=== PATIENT | male | born 1955 | race Caucasian/White ===

== ENCOUNTER 2023-02-10 06:19 | Day surgery (SDC) | payer MEDICARE, SELFPAY ==
[2023-02-10] VITALS (7 sets, daily range): BP systolic 76–160; BP diastolic 56–76; PULSE 71–94; RESP 16; TEMP 36.3–36.6; O2SAT 93–96; BMI 32.1
[2023-02-10] MEDS: Lactated Ringers 1,000 ML 15 ML IV (06:51)
--- NOTE | 2023-02-10 07:00 | HP.PCM_ITS ---
History and Physical Date of Admission: 02/10/23 Visit Reasons:?SCOPE Chief Complaint: scope Mail Rider Required: No Is patient in pain?: No Allergies No Known Allergies Allergy (Unverified 01/15/23 08:19) Medications amlodipine 5 mg tablet 5 mg PO DAILY 01/15/23 [History Confirmed 01/15/23] celecoxib 200 mg capsule 200 mg PO DAILY 01/15/23 [History Confirmed 01/15/23] hydrochlorothiazide 12.5 mg tablet 12.5 mg PO DAILY 01/15/23 [History Confirmed 01/15/23] losartan 100 mg tablet 100 mg PO DAILY 01/15/23 [History Confirmed 01/15/23] metoprolol succinate 100 mg tablet,extended release 24 hr 100 mg PO DAILY 01/15/23 [History Confirmed 01/15/23] omeprazole 20 mg capsule,delayed release 20 mg PO DAILY 01/15/23 [History Confirmed 01/15/23] simvastatin 80 mg tablet 80 mg PO DAILY 01/15/23 [History Confirmed 01/15/23] PFSH Medical History?(Updated 01/15/23 @ 08:[address] Julian Medina MD) Diverticulitis GERD (gastroesophageal reflux disease) High cholesterol HTN (hypertension) Surgical History?(Updated 01/15/23 @ 08:17 by Tyra Mercado) H/O elbow surgery History of ankle surgery S/P carpal tunnel release S/P hip replacement S/P wrist surgery Social History?(Updated 01/15/23 @ 08:18 by Tyra Mercado) Smoking Status:? Never smoker alcohol intake:? current HPI HPI HPI: 67-year-old gentleman who presents to consider colonoscopy.? We have information October 03, [address] abdomen and pelvis that was performed at [facility].? The liver was unremarkable.? Gallbladder normal.? Peripelvic cysts noted of the kidneys.? 3.5 cm hiatal hernia with a thickened looking stomach.? Possibly artifact of under distention.? Cannot exclude gastritis.? A few jejunal diverticulum.? Multiple sigmoid diverticula.? Mild mid sigmoid thickening apparently due to under distention but cannot exclude muscular atrophy.? Normal appendix.? Moderate calcification of the abdominal aorta.? Evidence of right hip arthroplasty. His complaint at that time was a 2-month history of a low abdominal ache after eating with aching most of the day.? No history of prior colonoscopy.? Patient's was here with his couple weeks ago.? He states that when the left lower quadrant pain started he was placed on some antibiotics per primary care but that really did not improve things and then antibiotics were changed and he thinks he got better but he still not completely resolved with intermittent tenderness left lower quadrant.? No fever or chills or sweats or nausea or vomiting or bright red blood per rectum or melena.? He has no family history of colon polyps or colon cancer.? He has never had a colonoscopy.? Sometimes he has had some constipation alternating with diarrhea.? The pain is worse when he overeats.? The pain is worse even after a regular meal. Additionally he makes comment that he has had heartburn symptoms for probably 20 years and has been on a proton pump inhibitor that entire time.? The PPI works efficiently however he will have recurrent reflux symptoms upon cessation..? He has never had an upper endoscopy ROS General General: No weight change, appetite, fatigue, colon cancer, breast cancer or weakness HEENT HEENT: No difficulty swallowing, eye injury, eye surgery, swollen glands or hoarseness Endo Endocrine: No thyroid disease, diabetes mellitus, thyroid cancer, Hair loss, heat intolerance or cold intolerance Skin Skin: No rash or changing moles Breast Breast: No left breast lump, right breast lump, nipple discharge, breast pain, abnormal mammogram, abnormal US or breast enlargement Musc Musculoskeletal: Yes back problems and arthritis; No rheumatoid arthritis, gout or joint pain Cardio Cardiovascular: Yes high blood pressure; No murmur, pacemaker, heart disease, atrial fibrillation, heart attack, heart stent, palpitations, shortness of breat with exertion or chest pain Psych Psychiatric: No depression, anxiety or hearing voices Resp Respiratory: No shortness of breath, No sleep apnea, No cough, No COPD, No asthma, No emphysema and No wheezing Gastro Gastrointestinal: Yes abdominal pain, No nausea or vomiting, No diarrhea, No constipation, No blood in stool, No acid reflux, No hemorrhoids, No ulcers, No gallbladder problem and No black,tarry stools Jayson Hematologic: No blood thinners, No blood disorders, No bleeding, No anemia and No blood clots Neuro Neurologic: No system reviewed and no additional complaints, except as documented, No as per HPI, No abnormal gait, No abnormal hearing, No abnormal movements, No abnormal speech, No behavioral changes, No burning sensations, No confusion, No convulsions, No disequilibrium, No dizziness, No localized weakness, No frequent falls, No headache(s), No lack of coordination, No loss of vision, No memory loss, No numbness, No other visual disturbances, No radicular pain, No restless legs, No sensory deficit, No syncope, No tingling, No tremor(s), No weakness and No other Exam Const General: cooperative, healthy appearing and comfortable [facility] Head: normal to inspection Eyes General: appearance normal, both eyes and all related structures Neck Neck: normal visual inspection Chest Chest palpation & inspection: normal inspection of the chest Resp Effort & Inspection: normal respiratory effort Auscultation: clear to auscultation bilaterally Cardio Rate: regular rate Rhythm: regular rhythm GI Palpation: soft and no hepatosplenomegaly Auscultation: normal bowel sounds Skin General: no rashes or lesions noted Neuro General: patient alert, patient awake and patient oriented x3 Extrem General: no calf tenderness Psych Appearance: grossly normal Assessment and Plan Assessment and Plan (1) GERD (gastroesophageal reflux disease): ?Status:?Acute (2) Abdominal pain: ?Status:?Acute ?Plan: 67-year-old gentleman.? He has had a chronic long-term history of heartburn reflux symptoms and has been on proton pump inhibitor for multiple years.? He has never had a esophagogastroduodenoscopy.? CT imaging demonstrated a small hiatal hernia as well as thickening of the gastric wall.? I recommended the patient esophagogastroduodenoscopy with possible biopsy or polypectomy is indicated. The patient presents with ongoing issues with left lower quadrant abdominal pain.? Although improved it is not completely resolved.? He notes some intermittent change in bowel habits as well with some constipation and diar lovely.? CT imaging suggested some thickening of the sigmoid wall.? He has never had a colonoscopy.? I propose for him a colonoscopy with possible biopsy or polypectomy is indicated with very careful inspection of the sigmoid area. He has had an opportunity to ask and have questions answered.? He requests a prep utilizing pills which we will accommodate.? I very much appreciate the kind opportunity of assisting with the surgical care. Copy: Dr. Onur Medina M.D., F.A.C.S. I have examined the patient and the H&P has been reviewed. There are no clinical changes since date of exam. Julian Medina M.D., F.A.C.S. Assessment & Plan Assessment/Plan (1) Abdominal pain: (2) GERD (gastroesophageal reflux disease):
--- NOTE | 2023-02-10 07:30 | COLBX_PTH ---
PATIENT: JADA SURESH Jr. LOC: EN U#:[id number] AGE/SX: 67/M ROOM: RE02/10/[address]: Dr. Julian Medina MD : 1955 BED: DIS: 02/10/2023 SPEC #: [id number] RECD: 02/10/23 11:30 STATUS: BLAKE HILLMAN #: [id number] PARDEEP: 02/10/23 07:[address]: Julian Medina DEPT: SURGICAL PATHOLOGY RECD BY: Huey Knowles Tissues: A - COLON BIOPSY B - COLON BIOPSY C - Esophagus, NOS Procedures: Special Stain Group II Surgery Specimen Level IV Alcian Blue/PAS (control) HEADER OPERATION: Colonoscopy, EGD with biopsies ([facility] [place]) PRE-OP DIAGNOSIS: GERD, abdominal pain TISSUE SUBMITTED: A ? Antrum for H. pylori and path, B ? Greater curvature polyp biopsy, C ? Distal esophagus biopsy MICROSCOPIC DIAGNOSIS A. Antrum, biopsy: Mild gastritis. See microscopic description and comment. B. Greater curvature polyp, biopsy: Fundic gland polyp. C. Distal esophagus, biopsy: Fragments of gastroesophageal mucosa with rare cells with intestinal metaplasia (goblet cell metaplasia). Mild chronic inflammation. Negative for dysplasia. See comment. SJ:rg 02/11/2023 COMMENT A. The results of immunohistochemistry for Helicobacter pylori will be reported separately ([id number]). C. Alcian blue/PAS stain with matched control is used in the evaluation of the specimen. The specimen predominantly consists of squamous mucosa. MICROSCOPIC DESCRIPTION Slides are reviewed. A. The specimen shows fragments of gastric mucosa with chronic inflammatory cell infiltrates in the lamina propria consisting of lymphocytes and plasma cells, consistent with mild chronic gastritis. GROSS DESCRIPTION A - Received in fixative is one container labeled with the patient's name and designated gastric antrum. The specimen consists of one irregular fragment of light cancino soft tissue that measures 0.3 x 0.3 x 0.1 cm. The specimen is totally submitted in one cassette. B - Received in fixative is one container labeled with the patient's name and designated greater curvature polyp. The specimen consists of one irregular fragment of light cancino soft tissue that measures 0.7 x 0.3 x 0.1 cm. The specimen is totally submitted in one cassette. C - Received in fixative is one container labeled with the patient's name and designated distal esophagus. The specimen consists of two irregular fragments of light cancino soft tissue that in aggregate measure 0.7 x 0.5 x 0.1 cm. The specimen is totally submitted in one cassette. / AM:shakila 02/10/2023 TC:3 CPT: 02407 x3, 73904
--- NOTE | 2023-02-10 07:30 | IMM_PTH ---
PATIENT: JADA SURESH Jr. LOC: JUANA U#:[id number] AGE/SX: 67/M ROOM: RE02/10/[address]: Dr. Julian Medina MD : 1955 BED: DIS: 02/10/2023 SPEC #: [id number] RECD: 02/10/23 12:50 STATUS: BLAKE KADY #: [id number] PARDEEP: 02/10/23 07:[address]: Julian Medina DEPT: IMMUNOHISTOCHEMISTRY RECD BY: Apryl Urban Tissues: A - Stomach, NOS Procedures: H Pylori (initial) PHYSICIAN & INSTITUTION [place] [id number] SPECIMEN INFORMATION: Tissue Source: A - Antrum Clinical Info: GERD, abdominal pain Specimen Number: [id number] CPT code: 61061 METHODOLOGY: Deparaffinized sections of prefer/formalin-fixed tissue or PAP/DQ stained slides are incubated with monoclonal/polyclonal antibodies/oligonucleotide probes. Localization is made via biotin free immunoperoxidase method. Appropriate controls are performed and reacted as expected. Results on target cell population are indicated in the following table: RESULTS: ANTIBODY / CLONE RESULT Block A H Pylori (polyclonal) negative These tests were developed and their performance characteristics determined by [facility]. They may not have been cleared or approved by the [place]. Food and Drug Administration. The FDA has determined that such clearance or approval is not necessary. The above immunohistochemical/dualISH markers are ordered and reviewed by the Pathologist. INTERPRETATION: A. Antrum, biopsy: Negative for Helicobacter pylori organisms. SJ:shakila 02/11/2023
--- NOTE | 2023-02-10 08:07 | OP.EGD_ITS ---
Patient Name: Ole Mckeon Procedure Date: 02/10/2023 7:35 AM Date of : 1955 Age: 67 Procedure: Upper GI endoscopy Indications: Abdominal pain in the left upper quadrant, Gastro-esophageal reflux disease Providers: Julian Medina MD Referring MD: Julian Medina MD Medicines: See the Anesthesia note for documentation of the administered medications Complications: No immediate complications. Procedure: Pre-Anesthesia Assessment: - Prior to the procedure, a History and Physical was performed, and patient medications and allergies were reviewed. The patient's tolerance of previous anesthesia was also reviewed. The risks and benefits of the procedure and the sedation options and risks were discussed with the patient. All questions were answered, and informed consent was obtained. Prior Anticoagulants: The patient has taken no previous anticoagulant or antiplatelet agents. ASA Grade Assessment: II - A patient with mild systemic disease. After reviewing the risks and benefits, the patient was deemed in satisfactory condition to undergo the procedure. After obtaining informed consent, the endoscope was passed under direct vision. Throughout the procedure, the patient's blood pressure, pulse, and oxygen saturations were monitored continuously. The pediatric colonoscope was introduced through the mouth, and advanced to the second part of duodenum. The upper GI endoscopy was accomplished without difficulty. The patient tolerated the procedure well. Scope In: 7:42:52 AM Scope Out: 7:50:02 AM Total Procedure Duration Time 0 hours 7 minutes 10 seconds Findings: Esophagitis with no bleeding was found 35 cm from the incisors. Biopsies were taken with a cold forceps for histology. A medium-sized hiatal hernia was present. Localized moderate inflammation characterized by linear erosions was found in the gastric antrum. Biopsies were taken with a cold forceps for histology. Multiple pedunculated and sessile polyps with no bleeding and no stigmata of recent bleeding were found on the greater curvature of the stomach. The polyp was removed with a cold biopsy forceps. Resection and retrieval were complete. The examined duodenum was normal. Impression: - Reflux esophagitis. Biopsied. - Medium-sized hiatal hernia. - Acute gastritis. Biopsied. - Multiple gastric polyps. Resected and retrieved. - Normal examined duodenum. Recommendation: - Await pathology results. - Telephone my office for pathology results in 1 week. - Use sucralfate tablets 1 gram PO BID. - Continue present medications. Procedure Code(s): --- Professional --- 67923, Esophagogastroduodenoscopy, flexible, transoral; with biopsy, single or multiple Diagnosis Code(s): --- Professional --- K21.0, Gastro-esophageal reflux disease with esophagitis K44.9, Diaphragmatic hernia without obstruction or gangrene K29.00, Acute gastritis without bleeding K31.7, Polyp of stomach and duodenum R10.12, Left upper quadrant pain CPT copyright 2017 [employer]. All rights reserved. The codes documented in this report are preliminary and upon back maker review may be revised to meet current compliance requirements. Julian Medina MD 02/10/2023 8:06:43 AM This report has been signed electronically. Number of Addenda: 0 Note Initiated On: 02/10/2023 7:35 AM
--- NOTE | 2023-02-10 08:07 | OP.CCLET_ITS ---
02/10/2023 Lady Nieto Re : Upper GI endoscopy procedure for Ole Nieto This procedure was performed on Friday, February 10, 2023. My impressions and recommendations are as follows: Impressions : - Reflux esophagitis. Biopsied. - Medium-sized hiatal hernia. - Acute gastritis. Biopsied. - Multiple gastric polyps. Resected and retrieved. - Normal examined duodenum. Recommendations : - Await pathology results. - Telephone my office for pathology results in 1 week. - Use sucralfate tablets 1 gram PO BID. - Continue present medications. My findings are described in the full procedure note, which is enclosed. If I can be of further assistance, please feel free to contact me at Doctor phone number(s): Work: . Sincerely, Julian Medina MD 02/10/2023 8:06:43 AM This report has been signed electronically.
--- NOTE | 2023-02-10 08:12 | OP.CCLET_ITS ---
02/10/2023 Mandadolores Nieto Re : Colonoscopy procedure for Ole Nieto This procedure was performed on Friday, February 10, 2023. My impressions and recommendations are as follows: Impressions : - Non-thrombosed internal hemorrhoids and internal hemorrhoids that prolapse with straining, but spontaneously regress to the resting position (Grade II) found on digital rectal exam. - Diverticulosis in the sigmoid colon. - The examination was otherwise normal. - No specimens collected. Recommendations : - Discharge patient to home. - Resume previous diet. - Continue present medications. - Repeat colonoscopy in 10 years for screening purposes. My findings are described in the full procedure note, which is enclosed. If I can be of further assistance, please feel free to contact me at Doctor phone number(s): Work: . Sincerely, Julian Medina MD 02/10/2023 8:11:25 AM This report has been signed electronically.
--- NOTE | 2023-02-10 08:12 | OP.COLON_ITS ---
Patient Name: Ole Mckeon Procedure Date: 02/10/2023 7:50 AM Date of : 1955 Age: 67 Procedure: Colonoscopy Indications: Abdominal pain in the left lower quadrant Providers: Julian Medina MD Referring MD: Julian Medina MD Medicines: See the Anesthesia note for documentation of the administered medications Patient Profile: Last Colonoscopy: none. The patient's first colonoscopy is today. Complications: No immediate complications. Procedure: Pre-Anesthesia Assessment: - Prior to the procedure, a History and Physical was performed, and patient medications and allergies were reviewed. The patient's tolerance of previous anesthesia was also reviewed. The risks and benefits of the procedure and the sedation options and risks were discussed with the patient. All questions were answered, and informed consent was obtained. Prior Anticoagulants: The patient has taken no previous anticoagulant or antiplatelet agents. ASA Grade Assessment: II - A patient with mild systemic disease. After reviewing the risks and benefits, the patient was deemed in satisfactory condition to undergo the procedure. After I obtained informed consent, the scope was passed under direct vision. Throughout the procedure, the patient's blood pressure, pulse, and oxygen saturations were monitored continuously. The pediatric colonoscope was introduced through the anus and advanced to the cecum, identified by appendiceal orifice and ileocecal valve. The colonoscopy was performed without difficulty. The patient tolerated the procedure well. The quality of the bowel preparation was good. The ileocecal valve and the appendiceal orifice were photographed. Scope In: 7:51:28 AM Scope Withdrawal Time 0 hours 6 minutes 14 seconds Scope Out: 8:01:05 AM Total Procedure Duration Time 0 hours 9 minutes 37 seconds Findings: The digital rectal exam findings include non-thrombosed internal hemorrhoids and internal hemorrhoids that prolapse with straining, but spontaneously regress to the resting position (Grade II). Pertinent negatives include normal prostate (size, shape, and consistency). Multiple diverticula were found in the sigmoid colon. The exam was otherwise without abnormality. Impression: - Non-thrombosed internal hemorrhoids and internal hemorrhoids that prolapse with straining, but spontaneously regress to the resting position (Grade II) found on digital rectal exam. - Diverticulosis in the sigmoid colon. - The examination was otherwise normal. - No specimens collected. Recommendation: - Discharge patient to home. - Resume previous diet. - Continue present medications. - Repeat colonoscopy in 10 years for screening purposes. Procedure Code(s): --- Professional --- 63438, Colonoscopy, flexible; diagnostic, including collection of specimen(s) by brushing or washing, when performed (separate procedure) Diagnosis Code(s): --- Professional --- K64.1, Second degree hemorrhoids R10.32, Left lower quadrant pain K57.30, Diverticulosis of large intestine without perforation or abscess without bleeding CPT copyright 2017 [employer]. All rights reserved. The codes documented in this report are preliminary and upon medical biller/coder review may be revised to meet current compliance requirements. Julian Medina MD 02/10/2023 8:11:25 AM This report has been signed electronically. Number of Addenda: 0 Note Initiated On: 02/10/2023 7:50 AM
== END 2023-02-10 08:43 | disposition home or self-care (01) ==
LOC: EN 06:20 → AC 06:22
PROVIDERS: Referring Provider Surgery; Visit Provider Surgery
PROC: 0DJD8ZZ Inspection of Lower Intestinal Tract, Via Natural or Artificial Opening Endoscopic (ICD-10-PCS; CPT 45378; principal; 2023-02-10 07:25)
DX: K64.1 Second degree hemorrhoids (principal); K57.30 Diverticulosis of large intestine without perforation or abscess without bleeding; K44.9 Diaphragmatic hernia without obstruction or gangrene; K21.00 Gastro-esophageal reflux disease with esophagitis, without bleeding; K31.7 Polyp of stomach and duodenum; K29.00 Acute gastritis without bleeding; I10 Essential (primary) hypertension; E78.00 Pure hypercholesterolemia, unspecified; Z79.899 Other long term (current) drug therapy
CPT/HCPCS: 45378; 43239; 88305; 88313; 88342; J7120; J2405

== ENCOUNTER 2024-02-02 10:30 | Outpatient (RCR) | payer MEDICARE, SELFPAY ==
--- NOTE | 2023-12-29 09:22 | HP.PTEVAL ---
Patient's Visit Information Visit Information Visit Information: JADA SURESH Jr. is a 68 year old M referred to Physical Therapy by JESUS NARAYANAN with a diagnosis of Lumbar disc herniation. Date of Evaluation: 12/29/23 Physical Therapist: LAURO Mishra Visit Plan Frequency: 2x /Week Duration: 6 Weeks Plan: 2X/ week for 6 weeks for neutral spine core stability, LE strength, Postural exercises with HEP (gave pt for HEP prone lying to MAGO to help with tightness in his LB without any increase in pain... he actually felt a little looser) HEP: Supine pelvic tilt, Prone to MAGO, and sit with L Roll with upright posture Subjective Subjective: Pt started having back pain for a long time but it generally did not bother him until about 1 year ago and started making his R leg go numb in the front of the thigh. The surgeon said that the bulging disc is pushing on the nerve. He did an MRI. Now he has debilitating episodes of pain that he can hardly walk and they last 3-4 weeks and then the pain goes away. He has episodes every (3 times in a year). He reports that he does not act like a 68 year old and still does too many things to do. He has had no injections. He had an oral steroid packet. Right now he is not ready to do the minimal invasive surgery. Pt does not lay on his stomach and never could. When his pain was at his worst he could only lay on his R side. This last particular time sitting made it worse. Sitting in that recliner made it worse. Pain Back pain: Pain Intensity (Out of 10): 0 R leg pain: Pain Intensity (Out of 10): 0 Objective Objective: Gait: walks with normal gait pattern Trunk AROM: Flexion 25%, Ext 25%, SB B 50%, Rot B 50% LE MMT: R hip flex 21 and L hip flex 26 R knee ext 38 and L 43 R knee flex 27 and L 33 R hip ABD 27 and L 30 Pt is able to heel and toe raise and walk on them without issue SLUMP Test Negative B Tight B hamstring tightness (R THR) SLR -B Bridge 3/4 normal ROM no back pain Patellar DTR's 3+/3 B Prone lying to MAGO pt had no pain and actually felt looser after doing 2 X 10 Balance/Special Test Scores Oswestry Low Back Score: 16 Goals Goal 1:: I HEP Goal Time Frame: 4-6 Weeks Goal 2:: Have less freq of R leg and back pain Goal Time Frame: 4-6 Weeks Goal 3:: Be able to demonstrate proper sitting posture Goal Time Frame: 4-6 Weeks Goal 4:: Be able to feel like he can move throughout his day without feeling guarded due to fear of pain coming back on Goal Time Frame: 6-8 Weeks Rehabilitation Potential Rehabilitation Potential: Good Anticipated Interventions Patient/Client Instruction: Educate patient on: Condition and Plan of Care For the Purpose of:: To decrease pain, To increase ROM, To improve nutrient delivery to tissue, To improve muscle performance and motor function, To improve ability to perform ADL's, To increase tolerance to activity/condition/position, To improve performance and independence with ADL's, To decrease level of supervision to perform tasks, To improve ability of physical actions for home/community/work/leisure, To improve health of tissue, To decrease soft tissue restriction and To increase flexibility/ROM Therapeutic Exercise to Include: Strength training, Body mechanics, Postural training, Flexibilty training, Gait and locomotor training, Active ROM, Dynamic Lumbar Stabilization, Elena Exercises and Scapular Strength/Stabilization For the Purpose of:: To decrease pain, To decrease swelling/inflammation, To increase ROM, To improve nutrient delivery to tissue, To improve muscle performance and motor function, To improve ability to perform ADL's, To increase tolerance to activity/condition/position, To improve performance and independence with ADL's, To decrease level of supervision to perform tasks, To improve ability of physical actions for home/community/work/leisure, To improve gait and locomotor functions, To improve health of tissue, To decrease soft tissue restriction and To increase flexibility/ROM Text: Thank you for the opportunity to evaluate your patient. For Medicare and Medicare HMO plans, please review the plan of care and approve it. It will need to be FAXED BACK to us at [phone] for Medicare purposes. For Medicare only, by signing this I certify the plan of care. Please let me know if there are questions or concerns regarding this plan of care. Physician Signature: Date:
--- NOTE | 2024-02-02 11:13 | HP.PTDCSUM ---
Discharge Summary D/C summary: It has been my pleasure to treat JADA SURESH Jr. referred by JESUS NARAYANAN, with the diagnosis of Lumbar disc herniation for a total of 9 visit(s). Discharge Date: 02/02/24 Please see the following information for a summary of their discharge status. Subjective Subjective: Pt feels that he is better and really likes the MT on the spine. He feels that he is good as long as he keeps up his exercises. The lawn mowing and the straight up and down still bothers him. Pain Back pain: Pain Intensity (Out of 10): 0 R leg pain: Pain Intensity (Out of 10): 0 Overall Improvement % Improvement: 75 Objective Objective/Function: Pt still feel better with PA mobs and prone press ups. Purple band give for supine clams. bridges and inchworms. Continue with press ups and 90/90 nerve glide for HEP Goals Goal 1:: I HEP Goal Progress: Goal Met Goal 2:: Have less freq of R leg and back pain Goal Progress: Goal Met Goal 3:: Be able to demonstrate proper sitting posture Goal Progress: Goal Met Goal 4:: Be able to feel like he can move throughout his day without feeling guarded due to fear of pain coming back on Goal Progress: Goal Met Plan Plan: DC PT D/C Information Discharge Comments: DC PT to HEP d/c sentence: If there are questions or concerns regarding this patient's physical therapy, please feel free to call me at [phone]. Thank you for the referral of this patient. Sincerely, Laureen Charles, MPT Balance/Gait/Functional tests Balance/Special Test Scores Oswestry Low Back Score: 4 Improvement % Improvement: 75
== END 2024-02-02 14:48 | disposition home or self-care (01) ==
LOC: PT 10:30
DX: M51.26 Other intervertebral disc displacement, lumbar region (principal)
CPT/HCPCS: 97110; 97161